=== PATIENT | male | born 1970 | race African-American/Black ===

== ENCOUNTER 2018-04-04 09:16 | Outpatient (CLI) | payer BC ==
--- NOTE | 2018-04-04 11:56 | CT ---
ABDOMEN AND PELVIC CT WITH AND WITHOUT CONTRAST: COMPARISON: 12/10/16. HISTORY: Urethral stricture. Microscopic hematuria. Low back pain. History of urinary tract infection and b ladder diverticulum. COMPARISON: None. TECHNIQUE: An abdomen and pelvic CT is performed with and without IV contrast. Coronal reformatted images are s ubmitted for interpretation. FINDINGS: ABDOMEN CT: Lung bases are clear. Normal heart size. The descending thoracic aorta and abdominal aorta have a n ormal caliber. No periaortic fat stranding. The portal vein is patent. Unremarkable. Unremarkable gallbladder. Overall, evaluation is limited by extensive beam-attenuation artifact due to body habitus. There is diffuse hypoattenuation of the liver suggesting hepatic steatosis. Spleen, pancreas, and adrenal gla nds are unremarkable. No gastrohepatic, retrocrural, or periportal lymphadenopathy. No obvious mesenteric mass, lymphadenopathy, free air, or free fluid. Symmetric attenuation of the kidneys on the noncontrast and postcontrast images. There is symmetric enhancement. There is no evidence of nephrolithiasis, hydronephrosis, or perinephric fat stranding. Bilateral ureters are grossly unremarkable. No obvious ureteral dilatation. There is symmetric exc retion of contrast into a nondistended or dilated intra- or extrarenal collecting system. Distal ure ters are difficult to evaluate due to lack of contrast opacification. PELVIC CT: No pelvic mass, lymphadenopathy, free air, or free fluid. There is contrast in the dependent portion of the urinary bladder. A right-sided bladder diverticulum is noted. Diverticulum is unchanged in location when compared to the previous examination and currently measures 5.5 x 2.9 cm (previously me asuring 4.9 x 3.1 cm. No lytic or blastic lesions in the osseous structures. IMPRESSION: 1. Limited evaluation by body habitus. Grossly, no evidence of obstructive uropathy. 2. Right-sided bladder diverticulum, incompletely evaluated. POS: [facility]
[2018-04-04] MEDS ORDERED: Iopamidol 370 76% 100 ML VIAL ONE (13:58)
== END 2018-04-04 09:17 | disposition home or self-care (01) ==
LOC: CT 09:16
PROVIDERS: ATTEND Urology
DX: N35.9 Urethral stricture, unspecified (principal); R31.29 Other microscopic hematuria; N32.3 Diverticulum of bladder; Z87.440 Personal history of urinary (tract) infections
CPT/HCPCS: 74178

== ENCOUNTER 2018-04-25 17:04 | Outpatient (CLI) | payer BC ==
[2018-04-25 17:59] LABS: Hemoglobin 12.7 g/dL (14.0-18.0); Mean Corpuscular HGB CONC 31.1 g/dL (32.0-36.0); Mean Corpuscular Hemoglobin 26.9 pg (27.0-31.0); Mean Corpuscular Volume 86.3 fL (78.0-98.0); Mean Platelet Volume 8.4 fL (7.4-10.4); Platelet Count 245 thou/uL (130-400); RBC Distribution Width 13.5 % (11.5-14.5); Red Blood Cell (RBC) Count 4.72 mill/uL (4.70-6.10); White Blood Cell (WBC) Count 6.5 thou/uL (4.8-10.8)
[2018-04-25 18:06] LABS: Prothrombin Time 13.4 SEC (12.0-14.7)
[2018-04-25 18:07] LABS: PTT 30.4 SEC (22.9-36.1)
[2018-04-25 18:25] LABS: Bilirubin Negative (Negative); Blood, Urine Negative (Negative); Clarity CLEAR (Clear); Glucose, Urine (Dipstick) Negative (Negative); Leukocyte Negative (Negative); Nitrite Negative (Negative); Protein, Urine (Dipstick) Negative (Neg-Trace); Specific Gravity, Urine 1.021 (1.002-1.036); Urobilinogen 0.2 mg/dL (0.2-1.0)
[2018-04-25 18:28] LABS: Bacteria/HPF None Seen HPF (None Seen); Hyaline Casts/LPF 0-3 HYALINE CAST LPF (0-3 Hyaline); RBC/HPF 0-3 HPF (0-3); Squamous Epithelial 0-3 HPF (0-3); WBC/HPF 0-3 HPF (0-3)
[2018-04-25 18:31] LABS: Anion Gap 12 mmol/L (10-20); BUN (Urea Nitrogen) 15 mg/dL (8.9-20.6); Calc. Creatinine Clearance 0 mL/min (70-130); Calcium 9.5 mg/dL (7.8-10.44); Carbon Dioxide 26 mmol/L (22-29); Chloride 103 mmol/L (98-107); Estimated GFR-MDRD Greater than 90; Glucose 78 mg/dL (70-105); Sodium 137 mmol/L (136-145)
--- NOTE | 2018-04-26 16:40 | EKG ---
Test Reason : Blood Pressure : / mmHG Vent. Rate : 058 BPM Atrial Rate : 058 BPM P-R Int : 156 ms QRS Dur : 092 ms QT Int : 404 ms P-R-T Axes : 043 025 002 degrees QTc Int : 396 ms Sinus bradycardia with marked sinus arrhythmia Inferior infarct , age undetermined Abnormal ECG Confirmed by HAYDEN ORLANDO, DR. Reddy ([id number]) on 04/26/2018 4:40:30 PM Referred By: DENIZ Confirmed By:DR. Maureen BLAKE MD
== END 2018-04-25 17:05 | disposition home or self-care (01) ==
LOC: LABBT 17:04
PROVIDERS: ATTEND Urology
DX: Z01.818 Encounter for other preprocedural examination (principal); N35.9 Urethral stricture, unspecified
CPT/HCPCS: 80048; 81001; 85027; 85610; 85730; 87086; 93005; 93010

== ENCOUNTER → 2018-05-10 | Day surgery (SDC) | payer BC ==
[2018-04-25 17:38] VITALS: BMI 57.6
[~2018-05-10] MED LIST: Fentanyl 250 MCG/5 ML VIAL ONE; Iothalamate Meglumine 60% 50 ML VIAL FS ONE; Levofloxacin 500 mg/D5W 100 ml Premix Bag ONE
== END ==
LOC: SDC 10:23
PROVIDERS: ATTEND Urology
DX: N35.919 Unspecified urethral stricture, male, unspecified site (principal); Z53.8 Procedure and treatment not carried out for other reasons; I10 Essential (primary) hypertension; E78.5 Hyperlipidemia, unspecified; G47.30 Sleep apnea, unspecified; N32.3 Diverticulum of bladder; M54.12 Radiculopathy, cervical region; Z79.899 Other long term (current) drug therapy; Z87.440 Personal history of urinary (tract) infections
CPT/HCPCS: J1956; J3010; Q9961

== ENCOUNTER 2018-05-23 16:42 | Outpatient (CLI) | payer BC ==
[2018-05-23 18:05] LABS: Prothrombin Time 13.7 SEC (12.0-14.7)
[2018-05-23 18:06] LABS: PTT 34.6 SEC (22.9-36.1)
[2018-05-23 18:12] LABS: Hemoglobin 13.3 g/dL (14.0-18.0); Mean Corpuscular HGB CONC 31.6 g/dL (32.0-36.0); Mean Corpuscular Hemoglobin 27.2 pg (27.0-31.0); Mean Corpuscular Volume 86.2 fL (78.0-98.0); Mean Platelet Volume 8.3 fL (7.4-10.4); Platelet Count 270 thou/uL (130-400); RBC Distribution Width 13.7 % (11.5-14.5); White Blood Cell (WBC) Count 7.6 thou/uL (4.8-10.8)
[2018-05-23 18:22] LABS: Anion Gap 14 mmol/L (10-20); BUN (Urea Nitrogen) 15 mg/dL (8.9-20.6); Calc. Creatinine Clearance 0 mL/min (70-130); Calcium 9.5 mg/dL (7.8-10.44); Carbon Dioxide 25 mmol/L (22-29); Chloride 104 mmol/L (98-107); Estimated GFR-MDRD Greater than 90; Glucose 111 mg/dL (70-105); Potassium 3.7 mmol/L (3.5-5.1); Sodium 139 mmol/L (136-145)
[2018-05-23 18:54] LABS: Bilirubin Negative (Negative); Blood, Urine Negative (Negative); Clarity CLEAR (Clear); Glucose, Urine (Dipstick) Negative (Negative); Leukocyte Negative (Negative); Nitrite Negative (Negative); Protein, Urine (Dipstick) Negative (Neg-Trace); Specific Gravity, Urine 1.019 (1.002-1.036); pH, Urine 5.5 (5.0-9.0)
[2018-05-23 18:56] LABS: Bacteria/HPF None Seen HPF (None Seen); Hyaline Casts/LPF 0-3 HYALINE CAST LPF (0-3 Hyaline); RBC/HPF 0-3 HPF (0-3); Squamous Epithelial 0-3 HPF (0-3); WBC/HPF None Seen HPF (0-3)
== END 2018-05-23 16:43 | disposition home or self-care (01) ==
LOC: LABBT 16:42
PROVIDERS: ATTEND Urology
DX: Z01.812 Encounter for preprocedural laboratory examination (principal); N35.919 Unspecified urethral stricture, male, unspecified site
CPT/HCPCS: 80048; 81001; 85027; 85610; 85730; 87086

== ENCOUNTER 2018-06-07 06:35 | Day surgery (SDC) | payer BC ==
[2018-05-23 17:12] VITALS: BMI 57.6
[2018-06-07] MEDS ORDERED: Iothalamate Meglumine 60% 50 ML VIAL FS ONE (07:33)
[2018-06-07] MEDS ORDERED: Levofloxacin 500 mg/D5W 100 ml Premix Bag ONE (08:56)
[2018-06-07] MEDS ORDERED: Fentanyl 100 MCG/2 ML VIAL ONE (09:30)
[2018-06-07] MEDS ORDERED: SUGAMMADEX SODIUM 500 MG/5 ML VIAL ONE (10:44)
[2018-06-07] MEDS ORDERED: Dexamethasone 4 mg/ml Vial ONE (10:55)
--- NOTE | 2018-06-07 11:14 | PRG ---
DATE OF PROCEDURE: 06/07/2018 PREOPERATIVE DIAGNOSES: A 48-year-old morbidly obese male with history of urethral stricture, a remote history of bulbar stricture dilatation in [place]. POSTOPERATIVE DIAGNOSES: A 48-year-old morbidly obese male with history of urethral stricture, a remote history of bulbar stricture dilatation in [place]. PROCEDURE: Cystoscopy, retrograde urethrogram, direct vision internal urethrotomy of proximal penile bulbar stricture. SURGEON: Dr. Alondra Valladares ANESTHESIA: General. COMPLICATIONS: None apparent. DISPOSITION: To recovery room. DRAINS: 20-[place]-tip Spivey catheter placed over guidewire assist with 10 mL insufflated the balloon to a leg bag. INDICATIONS FOR PROCEDURE AND HISTORY: Mr. Falcon is a pleasant 48-year-old morbidly obese male, whom I had seen as an inpatient consultation back in 2016. He presented with history of UTI febrile. He does have a history of prior UTI in 2008 in which in [place] underwent stricture dilatation of the bulbar urethra. He subsequently no showed. He then was represented to resume care. Restaging cystoscopy demonstrated multi-annular proximal penile bulbar stricture, approximately 3 in number caliber on flexible cystoscopy 12-14 Bhutanese with coapting lateral lobes of his prostatic urethra. He presents today for cystoscopy, DVIU. The risks and complications and indications for the procedure was reviewed with him in detail including, but not limited to, bleeding, pain, infection, recurrent nature of urethral stricture disease, infection, penile curvature, urosepsis was reviewed with him in detail and all questions answered to his satisfaction and he desired to proceed. We did discuss options of urethroplasty, however, desired trial of DVIU with full understanding with less efficacious outcome with DVIU. DESCRIPTION OF PROCEDURE: After an informed consent is signed, the patient is taken to the operating room, placed in a dorsal lithotomy position. It was somewhat challenging to have the patient go under anesthesia due to his morbid obesity. He eventually underwent general endotracheal anesthesia and was placed in dorsal lithotomy position. He is morbidly obese, and there is little room even in lithotomy position to rotate the rigid cystoscope. I was able to pass a 17 [place] cystoscope staging his urethra. Prior to performing a cystoscopy I did have the patient in a lateral modified decubitus position and a retrograde urethrogram was performed with a 14-Bhutanese Spivey catheter. This demonstrated a mild urethral stricture at the level of the proximal penile urethra. Bladder was able to be opacified. We passed a 17-Bhutanese cystoscope for cystoscopy which we were able to visualize the proximal penile urethral stricture which appeared to be not dense. There were approximately 2 of these strictures they were approximately 14 [place] caliber , wider caliber stricture at the level of bulbar urethra on rigid cystoscopy. I was able to pass a 17- [place]ut[place] sheath without significant trauma. There was a second very subtle bulbar urethral stricture which was passively dilated. Prostatic urethra demonstrated coapting lateral lobes. Bladder was entered which demonstrated no bladder stones or tumors and the UO's were identified well away from the bladder neck. It was difficult to rotate the scope to do a full inspection of the bladder as there was little room due to his morbid obesity and the size of his thighs. At this time, I did place a wire into the bladder and performed a direct vision internal urethrotomy. A cold knife was utilized to release the proximal penile stricture which released nicely. The bulbar urethral stricture remained and only required 1 swipe to release the bulbar urethral stricture. This was not near his sphincter. With the wire in situ a 20 [place] two-way Spivey catheter was passed and 10 mL insufflated and a leg bag with extension tubing is applied. He is discharged with Ciprofloxacin until followup appointment, Sally p.r.n., [place] 5/325 #30, 1 p.o. q.6 hours p.r.n. He will come to my office next week for a voiding trial. ABHILASH
[2018-06-07] MEDS ORDERED: Oxybutynin 5 MG TAB ONE (13:10)
[2018-06-07] MEDS ORDERED: Phenazopyridine HCl 97.5 MG TABLET ONE ×2 (13:11→13:18)
--- NOTE | 2018-06-07 13:20 | RAD ---
RETROGRADE URETHROGRAM: Date: 06-07-18 History: Urethral structure. FINDINGS/IMPRESSION: Fluoroscopic guidance was provided for Dr. Valladares. Cystogram demonstrates reflux of contrast int o the urinary bladder. There is a smooth mild degree of narrowing present within the base of the peni le urethra. Correlation with intraoperative findings recommended. POS: [facility]
== END 2018-06-07 16:38 | disposition home or self-care (01) ==
LOC: SDC 06:35
PROVIDERS: ATTEND Urology
PROC: 0T7D8ZZ Dilation of Urethra, Via Natural or Artificial Opening Endoscopic (ICD-10-PCS; principal; 2018-06-07)
DX: N35.912 Unspecified bulbous urethral stricture, male (principal); N40.0 Benign prostatic hyperplasia without lower urinary tract symptoms; G47.30 Sleep apnea, unspecified; K76.0 Fatty (change of) liver, not elsewhere classified; I10 Essential (primary) hypertension; M25.562 Pain in left knee; E66.01 Morbid (severe) obesity due to excess calories; Z68.43 Body mass index [BMI] 50.0-59.9, adult; Z87.891 Personal history of nicotine dependence; Z87.440 Personal history of urinary (tract) infections; Z79.899 Other long term (current) drug therapy; Z88.6 Allergy status to analgesic agent; Z91.018 Allergy to other foods; Z98.890 Other specified postprocedural states
CPT/HCPCS: 51610; 74450; 96374; C1758; J0131; J1100; J1956; J3010; Q9961

== ENCOUNTER 2018-10-02 16:00 | Outpatient (CLI) | payer BC | END 2018-10-02 16:01 | disposition home or self-care (01) | LOC: SLEEPLAB 16:00 | PROVIDERS: ATTEND Family Medicine | DX: G47.33 Obstructive sleep apnea (adult) (pediatric) (principal); G47.9 Sleep disorder, unspecified; R53.83 Other fatigue; R40.0 Somnolence; R09.89 Other specified symptoms and signs involving the circulatory and respiratory systems; E66.9 Obesity, unspecified; R06.83 Snoring; I10 Essential (primary) hypertension; Z68.43 Body mass index [BMI] 50.0-59.9, adult | CPT/HCPCS: 95806 ==

== ENCOUNTER 2018-10-12 20:30 | Outpatient (CLI) | payer BC | END 2018-10-12 20:31 | disposition home or self-care (01) | LOC: SLEEPLAB 20:30 | PROVIDERS: ATTEND Family Medicine | DX: G47.33 Obstructive sleep apnea (adult) (pediatric) (principal); G47.10 Hypersomnia, unspecified; R53.83 Other fatigue; R06.83 Snoring; I10 Essential (primary) hypertension; E66.9 Obesity, unspecified; Z68.43 Body mass index [BMI] 50.0-59.9, adult | CPT/HCPCS: 95811 ==

== ENCOUNTER 2019-01-12 14:54 | Outpatient (CLI) | payer BC | END 2019-01-12 14:55 | disposition home or self-care (01) | LOC: DTY/OP 14:54 | PROVIDERS: ATTEND Family Medicine | DX: E66.01 Morbid (severe) obesity due to excess calories (principal) | CPT/HCPCS: 97802 ==

== ENCOUNTER 2019-06-05 20:40 | Emergency (ER) | payer BC ==
[2019-06-05 21:15] LABS: #Eosinphils 0.1 thou/uL (0.0-0.7); #Lymphocytes 2.3 thou/uL (1.20-3.40); #Monocytes 0.7 thou/uL (0.11-0.59); #Neutrophils 4.8 thou/uL (1.40-6.50); %Basophils 0.6 % (0.0-1.0); %Eosinophils 0.9 % (0.0-10.0); %Lymphocytes 28.8 % (21.0-51.0); %Monocytes 9.1 % (0.0-10.0); %Neutrophils 60.7 % (42.0-75.0); Hemoglobin 12.6 g/dL (14.0-18.0); Mean Corpuscular HGB CONC 32.1 g/dL (32.0-36.0); Mean Corpuscular Hemoglobin 27.5 pg (27.0-31.0); Mean Corpuscular Volume 85.6 fL (78.0-98.0); Mean Platelet Volume 7.7 fL (7.4-10.4); Platelet Count 277 thou/uL (130-400); RBC Distribution Width 13.8 % (11.5-14.5); Red Blood Cell (RBC) Count 4.59 mill/uL (4.70-6.10); White Blood Cell (WBC) Count 7.9 thou/uL (4.8-10.8)
--- NOTE | 2019-06-05 21:16 | RAD ---
EXAM: Single view of the chest HISTORY: Intermittent shortness of breath for weeks COMPARISON: None FINDINGS: Single view of the chest shows a normal sized cardiomediastinal silhouette. There is no susie dence of consolidation, mass, or pleural effusion. The bones are unremarkable. IMPRESSION: No evidence of acute cardiopulmonary disease
[2019-06-05 21:42] LABS: ALT (SGPT) 17 U/L (8-55); AST (SGOT) 13 U/L (5-34); Albumin 4.1 g/dL (3.5-5.0); Alkaline Phosphatase 109 U/L (40-110); Anion Gap 14 mmol/L (10-20); BUN (Urea Nitrogen) 15 mg/dL (8.9-20.6); Bilirubin, Total 0.4 mg/dL (0.2-1.2); CK (CPK) 109 U/L (30-200); Calc. Creatinine Clearance 0 mL/min (70-130); Calcium 9.4 mg/dL (7.8-10.44); Carbon Dioxide 27 mmol/L (22-29); Chloride 103 mmol/L (98-107); Estimated GFR-MDRD Greater than 90; Globulin 3.8 g/dL (2.4-3.5); Glucose 81 mg/dL (70-105); Lipase 5 U/L (8-78); Potassium 3.8 mmol/L (3.5-5.1); Protein, Total 7.9 g/dL (6.0-8.3); Sodium 140 mmol/L (136-145)
== END 2019-06-06 01:20 | disposition home or self-care (01) ==
LOC: ERS 20:40
DX: I10 Essential (primary) hypertension (principal); R06.02 Shortness of breath; G47.30 Sleep apnea, unspecified; F32.9 Major depressive disorder, single episode, unspecified; Z79.899 Other long term (current) drug therapy
CPT/HCPCS: 36415; 71045; 80053; 82550; 83690; 83880; 84484; 85025; 85379; 93005; 94760